=== PATIENT | male | born 2000 | race Asian ===

== ENCOUNTER 2019-12-25 06:34 | Emergency (ER) | payer BC ==
[~2019-12-25] VITALS: Ht 149.9 cm; Wt 59.0 kg
[2019-12-25] MEDS ORDERED: ONDANSETRON HCL 4MG/2ML INJ IV STA ×3 (09:11→15:14)
[2019-12-25] MEDS ORDERED: KETOROLAC 30MG/ML VIAL IV STA (09:11)
[2019-12-25 09:30] LABS: HEMATOCRIT. 48.8 % (42.0-52.0); MEAN CORPUSCULAR HEMOGLOBIN 28.3 pg (28.0-32.0); MEAN CORPUSCULAR VOLUME 86.5 fL (80.0-94.0); PLATELET 391 x1000/uL (130-400); RED BLOOD CELL COUNT 5.65 mill/uL (4.7-6.1); RED CELL DISTRIBUTION WIDTH 13.2 % (11.6-14.6)
[2019-12-25 09:33] LABS: CHLORIDE 103 mEq/L (98-107)
[2019-12-25 09:36] LABS: ETHANOL BLOOD < 10 mg/dL
[2019-12-25 09:37] LABS: INR 0.9; PROTHROMBIN TIME 9.6 sec (9.6-11.0)
[2019-12-25 10:23] LABS: CLARITY URINE CLEAR (CLEAR); COLOR URINE YELLOW (YELLOW); KETONES URINE NEGATIVE (NEGATIVE); LEUKOCYTE ESTERASE URINE NEGATIVE (NEGATIVE); NITRITE URINE NEGATIVE (NEGATIVE); OCCULT BLOOD URINE NEGATIVE (NEGATIVE); PROTEIN URINE NEGATIVE (NEGATIVE); SPECIFIC GRAVITY URINE 1.017 (1.005-1.030); UROBILINOGEN URINE 0.2 E.U./dL (0.2-1.0)
[2019-12-25 10:43] LABS: *AMPHETAMINES SCREEN URINE NEGATIVE (NEGATIVE); *BARBITURATES SCREEN URINE NEGATIVE (NEGATIVE); *BENZODIAZEPINES SCREEN URINE NEGATIVE (NEGATIVE); CANNABINOID URINE SCREEN NEGATIVE (NEGATIVE); METHADONE URINE SCREEN NEGATIVE (NEGATIVE); OPIATES URINE SCREEN NEGATIVE (NEGATIVE); PHENCYCLIDINE URINE SCREEN NEGATIVE (NEGATIVE)
[2019-12-25 10:44] LABS: *COCAINE SCREEN URINE NEGATIVE (NEGATIVE)
[2019-12-25 11:16] LABS: PLATELET ESTIMATE NORMAL
[2019-12-25] MEDS ORDERED: SODIUM CHLORIDE 0.9% 1,000 ML IV ONE (12:12)
[2019-12-25] MEDS ORDERED: FUROSEMIDE 40MG/4ML VIAL IV ONE (12:30)
[2019-12-25] MEDS ORDERED: ENALAPRIL 1.25MG/ML VIAL 1ML IV ONE (12:30)
[2019-12-25] MEDS ORDERED: VANCOMYCIN 1 G PREMIX 200 ML IV ONE (14:45)
[2019-12-25] MEDS ORDERED: ACETAMINOPHEN 325MG TABLET PO STA (15:14)
[2019-12-25] MEDS ORDERED: DIPHENHYDRAMINE 50MG/ML VIAL IV ONE (16:30)
[2019-12-25 17:30] VITALS: BP 109/65
== END 2019-12-25 17:31 | disposition home or self-care (01) ==
LOC: ER 07:04
DX: L03.213 Periorbital cellulitis (principal); R11.2 Nausea with vomiting, unspecified
CPT/HCPCS: 36415; 70486; 71045; 74176; 80053; 80305; 80320; 81003; 83605; 85025; 85610; 87040; 87086; 87804; 96361; 96365; 96375; 96376; 99284; J1200; J1885; J2405; J3370; J7030; G0480